=== PATIENT | male | born 1950 | race Caucasian/White ===

== ENCOUNTER → 2016-09-22 | Outpatient (CLI) | payer OTHER ==
[~2016-09-22] MED LIST: ASPIRIN81 MG PO; LIPITOR20 MG PO; NORVASC PO; TENORMIN25 MG PO
--- NOTE | ~2016-09-22 | US37 ---
[facility] A Service of [facility] RADIOLOGY TEXT RESULTS PATIENT: THELMA BROWNE LOCATION: [facility] : 46 UNIT #: [id number] AGE: [address]: JAYSON ALVAREZ MD SEX: M ORDER DR: [id number] [address] [address] [id number] O MR#: [id number] Acc #: [id number] NAME: THELMA BROWNE : 1950 SEX: M STUDY DATE/TIME: 09/22/2016 9:23 UNIT: SGUS ROOM: STUDY DESCRIPTION: US Carotid W/Doppler Bilateral Attending Physician: Jayson Alvarez Referring Physician: Jayson Alvarez Ordering Physician: Robin Alvarez M.D. Primary Care Physician: James Dowell M.D. MEDICAL IMAGING REPORT This report is preliminary unless electronic signature is present. EXAM Carotid Doppler bilateral, 09/22/2016 HISTORY Loss of balance and coordination with dizziness, syncope for 1 week. Carotid arteriosclerosis, symptoms began 09/16/2016. Benign essential hypertension. FINDINGS Delatorre-scale carotid artery images were obtained as well as Doppler waveform, spectral analysis and color flow Doppler imaging. Examination was interpreted according to NASCET criteria. There is no hemodynamically significant stenosis in either carotid artery. Peak systolic velocity in the right and left internal carotid arteries is 59 cm/sec and 63 cm/sec respectively. Antegrade blood flow is seen in both vertebral arteries. There is mild plaque bilaterally. IMPRESSION No hemodynamically significant stenosis in either carotid artery. Dictated by... Jere Bustamante M.D. THIS IS AN ELECTRONICALLY VERIFIED REPORT Jere Bustamante M.D. at 09/24/2016 11:02 AM ANTONI/mary TD: 09/22/2016 23:49 JOB #: [id number] [facility] A Service [facility] RADIOLOGY TEXT RESULTS PATIENT: THELMA BROWNE LOCATION: [facility] : 48 UNIT #: [id number] AGE: [address]: JAYSON ALVAREZ MD SEX: M ORDER DR: MEDICAL IMAGING REPORT
== END | disposition home or self-care (01) ==
LOC: SGUS 07:57
DX: I65.23 Occlusion and stenosis of bilateral carotid arteries (principal); I10 Essential (primary) hypertension; I49.9 Cardiac arrhythmia, unspecified; R94.31 Abnormal electrocardiogram [ECG] [EKG]; N28.9 Disorder of kidney and ureter, unspecified; N40.0 Benign prostatic hyperplasia without lower urinary tract symptoms; J44.9 Chronic obstructive pulmonary disease, unspecified; R31.9 Hematuria, unspecified
CPT/HCPCS: 93880

== ENCOUNTER → 2016-09-25 | Outpatient (CLI) | payer OTHER ==
--- NOTE | ~2016-09-25 | US10 ---
[id number] [address] [address] [id number] O MR#: [id number] Acc #: [id number] NAME: THELMA BROWNE : 1950 SEX: M STUDY DATE/TIME: 09/25/2016 9:07 UNIT: SGUS ROOM: STUDY DESCRIPTION: US Aorta Complete Attending Physician: Robin Alvarez M.D. Referring Physician: Robin Alvarez M.D. Primary Care Physician: James Dowell M.D. MEDICAL IMAGING REPORT This report is preliminary unless electronic signature is present. EXAM Complete abdominal aortic ultrasound with Doppler imaging. DATE OF EXAM 09/25/2016 HISTORY 66-year-old male with pulsatile abdomen per referring physician's history. Patient states pulsatile abdomen seen 1 week ago by a MD. COMPARISON None. FINDINGS The proximal abdominal aorta measures up to 2.6 cm, mid abdominal aorta up to 2.2 cm, and the distal abdominal aorta measures up to 1.5 cm. No significant atherosclerotic plaquing or flowing stenosis is seen. No aneurysm. Normal color and spectral Doppler flow was detected throughout the imaged abdominal aorta. Bilateral common iliac arteries are of normal caliber, each measuring about 7-8 mm. Questionable small right pleural effusion in the upper abdomen (image 15 of 16). IMPRESSION 1. Normal caliber of the abdominal aorta with normal color and spectral Doppler flow. No aneurysm. 2. Suspected right pleural effusion. Consider correlation with chest x-ray. Dictated by... Donna Dias M.D. THIS IS AN ELECTRONICALLY VERIFIED REPORT Donna Dias M.D. at 09/26/2016 9:14 AM HOLLEY/tiffany TD: 09/25/2016 18:27 JOB #: [id number] MEDICAL IMAGING REPORT
== END | disposition home or self-care (01) ==
LOC: SGUS 08:55
DX: R19.8 Other specified symptoms and signs involving the digestive system and abdomen (principal)
CPT/HCPCS: 76770

== ENCOUNTER → 2016-10-07 | Outpatient (CLI) | payer OTHER ==
--- NOTE | ~2016-10-07 | EKG ---
PATIENT: THELMA BROWNE UNIT #: [id number] Ventricular Rate: 54 BPM Atrial Rate: 54 BPM P-R Interval: 196 ms QRS Duration: 94 ms Q-T Interval: 458 ms QTC Calculation(Bezet): 434 ms P Dennison: 18 degrees Calculated R Dennison: -6 degrees Calculated T Dennison: 109 degrees Diagnosis Line: Sinus bradycardia Diagnosis Line: Minimal voltage criteria for LVH, may be normal Diagnosis Line: variant Diagnosis Line: Inferior infarct , age undetermined Diagnosis Line: T wave abnormality, consider lateral ischemia Diagnosis Line: Abnormal ECG Diagnosis Line: No previous ECGs available Diagnosis Line: Confirmed by ASMITA HAWTHORNE MD ([id number]) on 10/07/2016 Diagnosis Line: 7:33:54 PM INTERPRETING MD: MARINE MORELAND
[2016-10-07 08:21] LABS: BASOPHIL# 0.1 X10e3 (0-0.3); EOSINOPHIL# 0.5 X10e3 (0-0.7); EOSINOPHIL% 3.7 % (0.0-7.0); HEMATOCRIT 47.9 % (38.0-50.0); HEMOGLOBIN 15.8 gm/dL (13.0-16.0); LYMPHOCYTE# 3.1 X10e3 (1.0-3.5); LYMPHOCYTE% 23.9 % (17.0-45.0); MEAN CELL VOLUME 92.7 FL (83-96); MEAN CORPUSCULAR HEMOGLOBIN 30.6 PG (28-34); MEAN PLATELET VOLUME 8.7 FL (6.5-11.5); MONOCYTE# 1.1 X10e3 (0-1.0); MONOCYTE% 8.4 % (3.0-12.0); NEUTROPHIL# 8.1 X10e3 (1.5-7.1); PLATELET COUNT 232 X10e3 (140-420); RED BLOOD COUNT 5.17 X10e (3.90-5.60); RED CELL DISTRIBUTION WIDTH 13.8 % (11.0-15.5); WHITE BLOOD COUNT 12.9 X10e3 (4.0-10.5)
[2016-10-07 08:22] LABS: DIFF IND NO
[2016-10-07 08:37] LABS: INR 1.1; PARTIAL THROMBOPLASTIN TIME 27.5 SECONDS (23.5-31.3); PROTHROMBIN TIME (PATIENT) 11.2 SECONDS (9.6-11.5)
[2016-10-07 08:50] LABS: BUN/CREATININE RATIO 13.57; CALCIUM SERUM 9.1 mg/dL (8.4-10.2); CREATININE SERUM 1.4 mg/dL (0.6-1.4); GLOM FILT RATE Estimated 53.6 mL/min (>60); POTASSIUM 3.8 mmol/L (3.5-5.1)
== END | disposition home or self-care (01) ==
LOC: CCVL 07:38
PROVIDERS: Internal Medicine Cardiovascular Disease
PROC: 4A023N7 Measurement of Cardiac Sampling and Pressure, Left Heart, Percutaneous Approach (ICD-10-PCS; principal; 2016-10-07)
PROC: B211YZZ Fluoroscopy of Multiple Coronary Arteries using Other Contrast (ICD-10-PCS; 2016-10-07)
PROC: B215YZZ Fluoroscopy of Left Heart using Other Contrast (ICD-10-PCS; 2016-10-07)
DX: I25.119 Atherosclerotic heart disease of native coronary artery with unspecified angina pectoris (principal); I25.82 Chronic total occlusion of coronary artery; I10 Essential (primary) hypertension; I25.2 Old myocardial infarction; J44.9 Chronic obstructive pulmonary disease, unspecified; I51.7 Cardiomegaly; I70.0 Atherosclerosis of aorta; I70.219 Atherosclerosis of native arteries of extremities with intermittent claudication, unspecified extremity; I65.29 Occlusion and stenosis of unspecified carotid artery; E78.00 Pure hypercholesterolemia, unspecified; R94.31 Abnormal electrocardiogram [ECG] [EKG]; F17.210 Nicotine dependence, cigarettes, uncomplicated; N40.0 Benign prostatic hyperplasia without lower urinary tract symptoms; N28.9 Disorder of kidney and ureter, unspecified; Z79.899 Other long term (current) drug therapy; Z80.3 Family history of malignant neoplasm of breast
CPT/HCPCS: 80048; 85025; 85610; 85730; 93005; C1769; C1887; C1894; J1644; J2250; J3010

== ENCOUNTER → 2016-10-13 | Outpatient (CLI) | payer OTHER | END | disposition home or self-care (01) | LOC: CNUC 07:44 | DX: I74.9 Embolism and thrombosis of unspecified artery (principal); R94.31 Abnormal electrocardiogram [ECG] [EKG]; R07.9 Chest pain, unspecified ==

== ENCOUNTER → 2016-10-14 | Outpatient (CLI) | payer OTHER ==
--- NOTE | ~2016-10-14 | TH ---
Unit #: [id number] #: [id number] Patient: THELMA BROWNE [id number] [facility]. [address] [place], [place] [address] [id number] O MR#: [id number] NAME: THELMA BROWNE : 1950 SEX: M STUDY DATE/TIME: 10/15/2016 UNIT: [facility] ROOM: STUDY DESCRIPTION: Attending Physician: Orlin Hernandez M.D. Referring Physician: Orlin Hernandez M.D. Primary Care Physician: James Dowell M.D. CARDIOLOGY REPORT EXAM Viability scan. PROCEDURE 4.77 mCi of thallium was injected. Images were obtained immediately after injection, 4 hours and then 24 hours. Images were obtained in horizontal and vertical long axis and short axis views. On the immediate images, there is severely decreased isotope activity involving the entire inferior, inferoapical wall of the left ventricle. There is mild decreased isotope activity involving the anteroseptal wall. On the images obtained at 4 hours, there is mild perfusion of the inferior and the inferoapical wall with mild decreased isotope activity in the anteroseptal wall of the left ventricle. At 24 hours, the images show significant isotope uptake in the inferior and the inferoapical wall with improved perfusion in the anteroseptal wall of the left ventricle. Comparing the images obtained immediately at 4 and 24 hours, there appears to be significant decreased isotope activity in the inferior wall, inferoapical and anteroseptal wall of the left ventricle. At 4 hours, there is somewhat improved perfusion in the inferior, inferoapical, and the anteroseptal wall of the left ventricle. At 24 hours, there appears to be much more significant isotope uptake in the inferior wall, inferoapical, and the anteroseptal wall of the left ventricle. CONCLUSION The images obtained immediately after thallium isotope shows decreased perfusion in the inferior wall, inferoapical, and the anteroseptal wall of the left ventricle. Images obtained 4 hours and 24 hours after isotope injection shows significant improved perfusion along the inferior wall, inferoapical, and anteroseptal wall of the left ventricle. Dictated by.Joey Perez TD: 10/15/2016 16:06 JOB #: [id number] Unit #: [id number] #: [id number] Patient: THELMA BROWNE DEANN CARDIOLOGY REPORT Page 1 of 1 X Tavia Mai MD <ELECTRONICALLY SIGNED> 02/14/17 1429 CARDIOLOGY REPORT
== END | disposition home or self-care (01) ==
LOC: CNUC 07:54
DX: I74.9 Embolism and thrombosis of unspecified artery (principal); R94.31 Abnormal electrocardiogram [ECG] [EKG]
CPT/HCPCS: 78452; A9505

== ENCOUNTER → 2016-10-21 | Outpatient (CLI) | payer OTHER ==
[2016-10-21 09:29] LABS: CALCIUM SERUM 9.6 mg/dL (8.4-10.2); CREATININE SERUM 1.3 mg/dL (0.6-1.4); GLOM FILT RATE Estimated 56.1 mL/min (>60); POTASSIUM 4.2 mmol/L (3.5-5.1)
== END | disposition home or self-care (01) ==
LOC: CLAB 07:44
PROVIDERS: Internal Medicine Cardiovascular Disease
DX: I10 Essential (primary) hypertension (principal); N28.9 Disorder of kidney and ureter, unspecified
CPT/HCPCS: 36415; 80048